=== PATIENT | male | born 1955 | race Caucasian/White ===

== ENCOUNTER → 2020-03-27 14:00 | Outpatient (CLI) | payer MEDICARE | END | disposition home or self-care (01) | LOC: D.CT 14:00 | PROVIDERS: ATTEND Thoracic Surgery (Cardiothoracic Vascular Surgery) | DX: I65.23 Occlusion and stenosis of bilateral carotid arteries (principal) ==

== ENCOUNTER → 2020-03-28 11:08 | Outpatient (CLI) | payer MEDICARE | END | disposition home or self-care (01) | LOC: D.OPS 11:08 | PROVIDERS: ATTEND Thoracic Surgery (Cardiothoracic Vascular Surgery) | DX: I65.23 Occlusion and stenosis of bilateral carotid arteries (principal) ==

== ENCOUNTER → 2020-04-16 10:13 | Outpatient (CLI) | payer MEDICARE ==
--- NOTE | 2020-04-17 13:08 | EC ---
PATIENT:EDITA FREED DATE OF SERVICE: 04/16/20 SEX: M MEDICAL RECORD: [id number] DATE OF : 55 [facility] AGE OF PATIENT: 64 ADMISSION DATE: 04/16/20 REFERRING PHYSICIAN: INTERPRETING PHYSICIAN: SARAH BEE MD ECHOCARDIOGRAM REPORT ECHO CHARGES 4 ECHO COMPLETE Date: 04/16/20 CLINICAL DIAGNOSIS: HEART MURMUR ECHOCARDIOGRAPHIC MEASUREMENTS (adult normal given) AC root (d.<3.7cm) 3.5 cm LV Septum d (<1.2 cm> cm Valve Excursion 1.6 cm LV Septum (systole) cm Left Atria (s.<4.0cm> 4.6 cm LVPW d(<1.2cm) cm RV (d.<2.3cm) 3.8 cm LVPW (sytole) cm LV diastole(<5.6CM) 5.5 cm MV E-F(>70mm/sec) cm LV systole 4.3 cm LVOT Diameter 1.7 cm MV exc.(>10mm) cm Est.ejection fraction (50-75%) % DOPPLER: LVIT cm/sec A 96.0 cm/sec E 62.0 cm/sec LA cm/sec RVSP 19 mmHg LVOT 112 cm/sec AOP1/2T m/s Asc. Ao 134 cm/sec RVOT 86 cm/sec RA cm/sec PA 127 cm/sec AV Gradient Peak 7.21 mmHg AV Mean 3.72 mmHg AV Area 1.9 cm MV Gradient Peak 4.19 mmHg MV Mean 1.33 mmHg MV Area cm COMMENTS: Lead Manufacturing Technician: 2 KRYSTINA DICKEY Senior Production Supervisor: 3 Dr. Jensen TAPE# PACS Pericardial Effusion N DATE OF SERVICE: Adequate 2D, color flow imaging, spectral Doppler, and M-Mode No LVH. LV internal dimensions are normal. Wall motion is normal. EF is greater than or equal to 55%. Aortic valve is sclerotic. There is no evidence of stenosis by Doppler interrogation. Left atrium dilated at 4.6 cm. Mitral valve shows no prolapse. Trace MR. Right-sided chambers are grossly normal. Trace TR. ECHOCARDIOGRAM REPORT [id number] EDITA FREED TRANSINT:[id number] Voice Confirmation ID: [id number] DOCUMENT ID: [id number] SARAH BEE MD at 1308 CC: [id number] DICTATION DATE: 04/17/20822 CERAMIC ARTIST: 04/17/20 09 DEP CLI 04/16/20 [place] [id number] [place] [address]
== END | disposition home or self-care (01) ==
LOC: D.HCCARDIO 10:13 → D.HCCECHO 11:30
PROVIDERS: ATTEND Internal Medicine Cardiovascular Disease
DX: R01.1 Cardiac murmur, unspecified (principal); I20.9 Angina pectoris, unspecified

== ENCOUNTER 2020-05-03 11:59 | Outpatient (CLI) | payer MEDICARE ==
[~2020-05-03] VITALS: Ht 182.9 cm; Wt 141.0 kg
--- NOTE | ~2020-05-03 | HP ---
PATIENT: EDITA FREED MEDICAL RECORD: [id number] ACCOUNT: [id number] LOCATION:[facility]AY : 55 ADMISSION DATE: 05/03/20 PCP: CARLOS PIEDRA MD HISTORY AND PHYSICAL EXAMINATION HISTORY OF PRESENT ILLNESS: A 64-year-old gentleman seen with progressive angina as well as supraventricular tachycardia. He underwent Cardiolite stress testing, which showed reversible ischemia along the inferior wall. He is being brought to the laboratory chief for diagnostic angiography. PAST MEDICAL HISTORY: 1. Hypertension. 2. Hyperlipidemia. 3. Diabetes mellitus. 4. 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 PHYSICAL EXAMINATION: GENERAL: Pleasant gentleman in no acute distress. HEENT: Normocephalic, atraumatic. NECK: No JVD or bruit. HEART: Regular. LUNGS: Clear. ABDOMEN: Soft, nontender. EXTREMITIES: Pulse 2+. No edema. IMPRESSION: Progressive angina with continued progressive angina with positive noninvasive findings. PLAN: For angiography, intervention based on the above. TRANSINT:[id number] Voice Confirmation ID: [id number] DOCUMENT ID: [id number] SARAH BEE MD CC: [id number] DICTATION DATE: 05/03/20 1311 ELECTRIC STOVE MECHANIC: 05/03/20 1457 REG [facility] [address] [place] [address]
--- NOTE | ~2020-05-03 | HEMODYNAMI ---
PATIENT:EDITA FREED MEDICAL RECORD: [id number] : 55 LOCATION:D.CAT ADMISSION DATE: 05/03/20 Generatedon:05/03/202014:59 Patient name: EDITA FREED Patient #: [id number] SSN: [id number] : 1955 Date of study: 05/03/2020 Page: Of Hemodynamic Procedure Report Patient Data Patient Demographics Procedure consent was obtained First Name: EDITA Gender: Male Last Name: ABDIAZIZ : 1955 Patient #: [id number] Age: 64 year(s) Race: Unknown SSN: [id number] Additional ID: [id number] Contact details [address]: [address] [place] [address] [address] State: [place] City: [place] Zip code: [address] Past Medical History Allergies Allergen Reaction Date Comments Reported Other allergy 05/03/2020 ASPIRIN Admission Admission Data Admission Date: 05/03/2020 Admission Time: 11:59 Arrival Date: 05/03/2020 Arrival Time: 0:00 Height (in.): 72.05 BSA: 2.57 (m2) Height (cm.): 183 BMI: 42.1 (kg/m2) Weight (lbs.): 310.85 Weight (kg.): 141 Lab Results Lab Result Date: 05/03/2020 Lab Result Time: 0:00 Biochemistry Name Units Result Min Max BUN mg/dl 17 --(---*)-- 7 18 Creatinine mg/dl 1.3 --(---*)-- 0.6 1.3 eGFR ml/min 59 *-(----)-- 90 120 NONAFRICAN CBC Name Units Result Min Max Hematocrit % 42.8 --(*---)-- 42 54 Hemoglobin g/dl 13.4 -*(----)-- 13.5 17.5 Procedure Procedure Types Cath Procedure Diagnostic Procedure LHC Coronaries only Sedation Charges Moderate Sedation up to 15 minutes Procedure Description Procedure Date Procedure Date: 05/03/2020 Procedure Start Time: 14:39 Procedure End Time: 14:56 Procedure Staff Name Function Toan Black MD Performing Physician Ronit Terry RT Monitor Roula Mcelroy RN Nurse Aurea Terrell RT Scrub Lizz Martines RT Director Telecommunications Indication Angina Procedure Data Cath Procedure Fluoroscopy Diagnostic fluoroscopy Total fluoroscopy Time: 4.1 time: 4.1 min min Diagnostic fluoroscopy Total fluoroscopy dose: dose: 1250 mGy 1250 mGy Contrast Material Contrast Material Type Amount (ml) Isovue 300 48 Entry Location Entry Primary Successful Side Size Upsize Upsize Entry Closure Day ccessful Closure Location (Fr) 1 (Fr) 2 (Fr) Remarks Device Remarks Radial Right 6 Fr Mechanical artery Short Compression Estimated blood loss: 5 ml Diagnostic catheters Device Type Used For End Catheter Placement DIAGNOSTIC [place] 110cm 5 Procedure Fr catheter ([id number]) DIAGNOSTIC AR2 MOD 5 Fr Procedure catheter ([id number]) DIAGNOSTIC Pigtail 5Fr LV Angiography catheter ([id number]) Procedure Complications No complications Procedure Medications Medication Administration Route Dosage 0.9% NaCl I.V. ml/hr Oxygen etCO2 Nasal cannula 2 l/min Lidocaine 2% added to field 20 Heparin Flush Bag added to field 2 bags (1000units/500ml NS) Radial Cocktail added to field 1 syringe (Verapamil 2mg/Nitro 400mcg/Heparin 1500units) Versed I.V. 2 mg Fentanyl I.V. 50 mcg Hemodynamics Rest BSA: 2.57 (m2) HGB: 13.4 (g/dl) O2 Consumption: Estimated: 349.52 (ml/min) O2 Co nsumption indexed: Estimated:136 (ml/min/m) Heart Rate: 0 (bpm) Snapshots Pre Cath Intra NCS Post Cath Vital Signs Time Heart Resp SPO2 etCO2 NIBP (mmHg) Rhythm Pain Sedation Rate (ipm) (%) (mmHg) Status Level (bpm) 14:25:03 61 15 100 36 Measuring NSR 0 (11) 10(A) , No pain 14:26:11 60 16 100 38.9 141/72(123) NSR 0 (11) 10(A) , No pain 14:30:48 67 15 98 34.4 141/76(112) NSR 0 (11) 10(A) , No pain 14:35:22 64 15 96 34.4 142/80(116) NSR 0 (11) 10(A) , No pain 14:39:56 67 13 96 29.9 117/65(89) NSR 0 (11) 9(A) , No pain 14:44:25 66 13 98 34.4 124/68(103) NSR 0 (11) 9(A) , No pain 14:48:55 68 12 97 35.9 136/70(94) NSR 0 (11) 10(A) , No pain 14:53:30 63 9 98 34.4 130/75(106) NSR 0 (11) 10(A) , No pain Medications Time Medication Route Dose Verified Delivered Reason Notes E ffectiveness by by 14:25:58 0.9% NaCl I.V. ml/hr Toan Roula used for Wayne Navi procedure MD TAYLOR 14:26:04 Oxygen etCO2 2 l/min Toan Badilloa used for Nasal Wayne Navi procedure cannula MD TAYLOR 14:26:09 Lidocaine 2% added 20ml Toan Joya [facility] MD HUGO 14:26:13 Heparin Flush added 2 bags Toan Joya used for Bag to [facility] procedure (1000units/500ml field MD HUGO NS) 14:26:25 Radial Cocktail added 1 Toan Joya used for (Verapamil to syringe Wayne Wayne procedure 2mg/Nitro field MD HUGO 400mcg/Heparin 1500units) 14:34:45 Versed I.V. 2 mg Toan Roula for WaynePuma Mcelroy sedation MD TAYLOR 14:34:56 Fentanyl I.V. 50 mcg Toan Celeste for Wayne Navi sedation medical secretary Log Time Note 14:05:44 Lizz Martines RT(R) sent for patient. Start room use. 14:07:35 Informed consent obtained and on chart 14:11:33 Indication : Angina 14:11:48 Procedure Status Elective Heart Cath (OP). 14:11:53 Time tracking: Regular hours (M-F 7:00 - 5:00) 14:12:01 Plan of Care:Hemodynamics will remain stable., Cardiac rhythm will remain stable., Comfort level will be maintained., Respiratory function will remain adequate., Patient/ family verbilizes understanding of procedure., Procedure tolerated without complication., Recovers from procedure without complications.. 14:12:28 Patient received from Pre/Post Procedure Room to CCL 1 Alert and oriented. Tansferred to table in Supine position. 14:12:30 Warm blankets applied, and kristie hugger turned on for patient comfort. 14:12:31 Correct patient and procedure confirmed by team. 14:12:32 ECG and BP/O2 sat monitors applied to patient. 14:14:13 Lab Result : Hematocrit 42.8 % 14:14:13 Lab Result : eGFR NONAFRICAN 59 ml/min 14:14:13 Lab Result : Hemoglobin 13.4 g/dl 14:14:13 Lab Result : BUN 17 mg/dl 14:14: Lab Result : Creatinine 1.3 mg/dl 14::18 Arrival Date: 05/03/2020 12:00:00 AM 14:14:23 Patient Height : 72.05 inches 14:14:28 Patient Weight : 310.85 lbs 14:17:29 Stress Test: yes; abnormal inferior and apical 14:17:35 Risk of Mortality: 0.1 14:17:39 Risk of blood transfusion: 0.1 14:17:43 Risk of CARROL: 0.3 14:22:27 H&P Date Dictated: 05/03/2020 H&P Addendum completed by physician on day of procedure. (MUST COMPLETE FOR ALL OUTPATIENTS), New H&P dictated by physician.. 14:22:28 Pre-procedure instructions explained to patient. 14:22:29 Pre-op teaching completed and patient verbalized understanding. 14:22:45 Family in patients room. 14:22:49 Patient NPO since Midnight. 14:23:13 Patient allergic to Other allergyASPIRIN 14:23:15 Vital chart was started 14:23:16 Baseline sample Acquired. 14:23:44 Is the patient allergic to Iodine/contrast media? No. 14:23:48 Was the patient premedicated? Yes 14:23:50 Is patient on blood thinner?Yes 14:23:58 ACC The patient was administered the following blood thiners within the last 24 hours: ACCPlavix 14:24:01 Patient diabetic? Yes. 14:24:09 If diabetic: On Metformin? No 14:24:49 ----Pre-sedation anethsthesia assessment.---- 14:24:54 Previous problem with sedation/anesthesia? No ? 14::58 Snore? Yes 14:25:06 Sleep apnea? No 14:25:20 Deviated septum? Unknown 14:25:23 Opens mouth fully? Yes 14:25:25 Sticks out tongue? Yes 14:25:30 Baseline sample Acquired. 14::58 Baseline sample Acquired. 14::58 0.9% NaCl ml/hr I.V. was administered by Roula Mcelroy RN; used for procedure; Verbal order read back and verified. 14:26:04 Oxygen 2 l/min etCO2 Nasal cannula was administered by Roula Mcelroy RN ; used for procedure; Verbal order read back and verified. 14:26:09 Lidocaine 2% 20ml vial added to field was administered by Toan Black MD; for local anesthetic; Verbal order read back and verified. 14:26:13 Heparin Flush Bag (1000units/500ml NS) 2 bags added to field was administered by Toan Black MD; used for procedure; Verbal order read back and verified. 14:26:25 Radial Cocktail (Verapamil 2mg/Nitro 400mcg/Heparin 1500units) 1 syring e added to field was administered by Toan Black MD; used for procedure; Verbal order read back and verified. 14:26:28 Full Disclosure recording started 14:26:46 Airway obstruction? No ? 14::54 Dentures? No ? 14::55 - 14:27:05 Pre procedure: left dorsailis pedis pulse 1+ Palpable, but thready & weak; easily obliterated 14:27:22 Modified Dae's test Ulnar > 7 seconds. 14:27:33 IV patent on arrival in left forearm with 0.9% NaCl at [facility]. 14:27:41 Lab results completed and on chart. 14:27:52 Right Radial & Left Groin area was prepped with chlora-prep and draped in sterile fashion 14:27:55 Alarms reviewed by RAnthony NAnthony 14:27:57 Sharps counted by scrub and verified by RAnthonyNAnthony 14:29:21 Baseline sample Acquired. 14:29:31 Rhythm: sinus rhythm 14::37 Physician arrived 14::38 --------ALL STOP TIME OUT------ 14::39 Final Timeout: patient, procedure, and site verified with staff and physician. All members of the team are in agreement. 14:29:44 Right Radial & Left Groin site verified by team. 14:29:56 Fire Safety Assessment: A--An alcohol-based skin anteseptic being used preoperatively., C--Open oxygen or nitrous oxide is being used., D--An ESU, laser, or fiber-optic light is being used. 14:30:05 Physical assessment completed. ASA score P 2 - A patient with mild systemic disease as per Toan Black MD. 14:30:16 3a) 45-59 Moderately reduced kidney function. 14:30:22 Maximum allowable contrast dose (3.7 X eGFR X 0.75)163 ml. 14:30:36 Sedation plan: IV Moderate Sedation Medication:Versed, Fentanyl 14:30:44 Use device set Radial Dx or PCI 14:30:46 ACIST Syringe (14433) opened to sterile field. 14:30:48 Medline Cath Pack ([id number]) opened to sterile field. 14:30:48 Bag Decanter (2002S) opened to sterile field. 14:30:50 ACIST Hand Control (36276) opened to sterile field. 14:30:52 ACIST Manifold (17232) opened to sterile field. 14:30:54 MBrace Wrist Support ([id number]) opened to sterile field. 14:30:57 EMERALD Guide Wire (190-410) opened to sterile field. 14:30:59 SHEATH 6FR RAIN (0554112) opened to sterile field. 14:34:03 Zero performed for pressure channel P1 14:34:45 Versed 2 mg I.V. was administered by Roula Mcelroy RN; for sedation; Verbal order read back and verified. 14:34:56 Fentanyl 50 mcg I.V. was administered by Roula Mcelroy RN; for sedation ; Verbal order read back and verified. 14:39:07 Procedure started. 14:39:15 Local anesthetic to right radial artery with Lidocaine 2% by Toan Black MD.INITIAL ACCESS ONLY 14:39:32 A 6 Fr Short sheath was inserted into the Right Radial artery 14:39:45 A DIAGNOSTIC [place] 110cm 5 Fr catheter (861195) was advanced over the wire and used for Procedure. 14:43:27 LCA angiography performed. 14:43:42 Injector settings: Ml/sec: 3, Volume: 6, 14:46:34 Catheter removed. 14:47:09 A DIAGNOSTIC AR2 MOD 5 Fr catheter (217232Z) was advanced over the wire and used for Procedure. 14:47:48 RCA angiography performed. 14:47:54 Injector settings: Ml/sec: 3, Volume: 6, 14:48:10 Catheter removed. 14:48:39 A DIAGNOSTIC Pigtail 5Fr catheter (032975V) was advanced over the wire and used for LV Angiography. 14:50:44 Catheter removed. 14:51:37 ZEPHYR LARGE TR BAND (675122) opened to sterile field. 14:51:44 Sheath removed intact; hemostasis achieved with Mechanical Compression to the Right Radial artery. 14:51:54 Procedure ended.(Physican Out) 14:52:15 Contrast amount:Isovue 300 48ml. 14:52:25 Fluoroscopy time 04.10 minutes. 14:52:30 Flurop Dose total: 1250 14:52:30 Fluoroscopy dose: 1250 mGy 14:52:42 Dose Area Product 58566 mGy/cm. 14:52:48 Maximum allowable dose exceeded? No. 14:52:51 Sharps counted by scrub and verified by R.N. 14:53:38 [place] band inflated with 10cc of air. 14:53:49 Post right radial artery:stable 14:53:57 Post-procedure physical assessment completed. ASA score P 2 - A patient with mild systemic disease as per Toan Black MD. 14:54:01 Post procedure rhythm: unchanged. 14:54:18 Estimated blood loss: 5 ml 14:54:19 Post procedure instruction explained to patient.Patient verbalizes understanding. 14:54:21 Patient needs reinforcement of post procedure teaching. 14:54:59 Procedure type changed to Cath procedure, Diagnostic procedure, LHC, Coronaries only, Sedation Charges, Moderate Sedation up to 15 minutes 14:55:02 Procedure and supply charges have been captured, reviewed, submitted an d are correct. 14:55:33 Procedure Complication : No complications 14:55:37 Vital chart was stopped 14:56:07 [facility] Findings: mild to moderate CAD (<70%) 14:56:08 Operative report dictated upon procedure completion. 14:56:10 See physician's report for complete and final results. 14:56:20 Report given to Pre/Post Procedure Room. 14:56:26 Patient transfered to Pre/Post Procedure Room with Stretcher. 14:56:29 Procedure ended. 14:56:29 Full Disclosure recording stopped 14:56:35 End room use (Document Last) Device Usage Item Name Manufacture Quantity Catalog Hospital Part Current Minima l Lot# / Number Charge Number Stock Stock Serial# Code ACIST Acist 1 48861 796645 282370 944000 20 Syringe Medical (30178) Systems Inc Medline Medline 1 [id number] 870819 99551 184344 5 Cath Pack ([id number]) Bag Microtek 1 534638 97008 920693 5 Decanter Medical Inc. () ACIST Hand Acist 1 46170 940385 069492 849164 5 Control Medical (29269) Systems Inc ACIST Acist 1 78504 653873 507147 860339 5 Manifold Medical (12755) Systems Inc MBrace Advanced 1 140-0250-00 868197 86464 261389 5 Wrist Vascular Support Dynamics ([id number]) EMERALD Cardinal 1 502-455 089861 035020 018310 5 Guide Wire Health (502455) SHEATH 6FR Cardinal 1 8297167 826998 1266143 863583 5 [facility] (7025045) DIAGNOSTIC Terumo 1 40-5013 917598 614840 459474 5 [place] 110cm 5 Fr catheter (095946) DIAGNOSTIC Cardinal 1 [id number] 188924 167668 202200 20 AR2 MOD 5 Health Fr catheter (177410Z) DIAGNOSTIC Cardinal 1 [id number] 500460 310827 449794 5 Pigtail 5Fr Health catheter (165604P) ZEPHYR Cardinal 1 410381 519531 1713282 573172 5 LARGE TR Health BAND (885893) Signature Audit [place] Stage Time Signature Unsigned Intra-Procedure 05/03/2020 Ronit 2:57:04 PM Harrison RT(R) (CV) Intra-Procedure 05/03/2020 Roula Mcelroy 2:58:23 PM RN Intra-Procedure 05/03/2020 Toan Santana 2:59:02 PM Puma HUGO [facility] [address] [facility] [place] [address]
--- NOTE | ~2020-05-03 | OP ---
PATIENT NAME: EDITA FREED MEDICAL RECORD: [id number] :55 LOCATION:D.CAT ADMISSION DATE: SURGEON: SARAH BEE MD DATE OF OPERATION: 05/03/2020 PROCEDURE: Left heart catheterization, selective coronary angiography, right radial approach. CATHETERS: [place] sheath, radial catheter. The procedure was well tolerated. The patient was returned to the [place]. Sheath was removed. TR band was placed. FINDINGS: Left ventriculography not perform. Normal wall motion, normal systolic function via echocardiogram study and nuclear stress testing. CORONARY ANATOMY: LEFT MAIN: Left main is free of disease. LAD: Has mild luminal irregularities, otherwise free of disease. CIRCUMFLEX: There is a huge left dominant system. Circumflex is free of disease. RIGHT CORONARY ARTERY: Rudimentary. IMPRESSION: Normal LV systolic function via noninvasive studies, luminal irregularities to LAD, widely patent dominant circ, right is rudimentary. TRANSINT:[id number] Voice Confirmation ID: [id number] DOCUMENT ID: [id number] SARAH BEE MD CC: [id number] DICTATION DATE: 05/03/20 1457 KEY RINGER: 05/03/20 1625 REG [facility] [address] [place] [address]
[2020-05-03] MEDS ORDERED: INSULIN LISPRO SQ (12:41)
[2020-05-03] MEDS ORDERED: LEVEMIR FL100 UNIT/1 SC (12:42)
[2020-05-03] MEDS ORDERED: ZESTRIL20 MG PO (12:43)
[2020-05-03] MEDS ORDERED: PLAVIX75 MG PO (12:44)
[2020-05-03] MEDS ORDERED: OMEPRAZOLE40 MG PO (12:44)
[2020-05-03] MEDS ORDERED: BYSTOLIC10 MG PO (12:45)
[2020-05-03] MEDS ORDERED: LIPITOR40 MG PO (12:45)
[2020-05-03] MEDS ORDERED: JARDIANCE25 MG PO (12:45)
[2020-05-03 13:16] VITALS: BP 124/68; Ht 182.9 cm; Wt 141.0 kg
[2020-05-03 13:22] LABS: BASOPHILS 0.6 % (0-2); EOSINOPHILS 3.2 % (0-7); HEMATOCRIT 42.8 % (42.0-54.0); HEMOGLOBIN 13.4 g/dL (13.5-17.5); IMMATURE GRANULOCYTES 0.2 % (0-5); LYMPHOCYTES 16.7 % (15-50); MCHC 31.3 g/dL (31.0-37.0); MCV 86.1 fL (80.0-100.0); MONOCYTES 11.4 % (2-11); NEUTROPHILS 67.9 % (40-80); PLATELET COUNT 216 10x3/uL (130-400); RBC 4.97 10x6/uL (4.20-6.10); RDW 16.1 % (11.5-14.5); WBC 8.4 10x3/uL (4.8-10.8)
[2020-05-03 13:37] LABS: ANION GAP 11.4 mmol/L (8-16); CALCIUM 8.4 mg/dL (8.5-10.1); CARBON DIOXIDE 24.9 mmol/L (21.0-32.0); CHOL - HDL RATIO 3.3 ratio (2.3-4.9); CREATININE - SERUM 1.3 mg/dL (0.6-1.3); LDL-HDL RATIO 1.8 ratio (1.5-3.5); POTASSIUM - SERUM 4.3 mmol/L (3.5-5.1)
--- NOTE | 2020-05-03 15:00 | NUR ---
PT ARRIVED BY STRETCHER. PLACED ON MONITORS. ASSESSMENT COMPLETED. VSS AT THIS TIME. AT BEDSIDE.
--- NOTE | 2020-05-03 15:15 | NUR ---
PT SITTING UP IN BED. CALL LIGHT WITHIN REACH. DENIES NAUSEA/PAIN. SET UP WITH SANDWICH TRAY AND DRINK. FAMILY AT BEDSIDE TO ASSIST.
--- NOTE | 2020-05-03 15:45 | NUR ---
2cc OF AIR REMOVED FROM Z BAND. NO BLEEDING/HEMATOMA NOTED AT THIS TIME. CALL LIGHT WITHIN REACH. VSS AT THIS TIME. FAMILY AT BEDSIDE.
--- NOTE | 2020-05-03 16:00 | NUR ---
4cc OF AIR REMOVED FROM Z BAND. NO BLEEDING/HEMATOMA NOTED.
--- NOTE | 2020-05-03 16:15 | NUR ---
4cc OF AIR REMOVED FROM Z BAND. NO BLEEDING/HEMATOMA NOTED. CALL LIGHT WITHIN REACH. VSS AT THIS TIME.
--- NOTE | 2020-05-03 16:20 | NUR ---
PIV D/C'C WITH CATH TIP INTACT. TOLERATED WELL. VSS. RIGHT WRIST Z BAND IN PLACE. NO BLEEDING/HEMATOMA NOTED.
--- NOTE | 2020-05-03 16:30 | NUR ---
PT TO RESTROOM. VOIDED WITHOUT DIFFICULTY. STEADY GAIT NOTED. RIGHT WRIST Z BAND REMOVED AND DRESSING APPLIED. NO BLEEDING/HEMATOMA NOTED. RIGHT WRIST BRACE IN PLACE.
--- NOTE | 2020-05-03 16:44 | NUR ---
RIGHT WRIST DRESSING C/D/I. NO S/S OF HEMATOMA NOTED.
--- NOTE | 2020-05-03 16:45 | NUR ---
PT TAKEN DOWN TO VEHICLE BY WHEELCHAIR. NO S/S OF DISTRESS NOTED. ALL BELONGINGS AND PAPERWORK IN HAND.
== END 2020-05-03 16:45 | disposition home or self-care (01) ==
LOC: D.CATH 11:59
PROVIDERS: ATTEND Internal Medicine Interventional Cardiology
DX: I20.0 Unstable angina (principal); I47.1 Supraventricular tachycardia; I10 Essential (primary) hypertension; E78.5 Hyperlipidemia, unspecified; E11.9 Type 2 diabetes mellitus without complications; Z79.4 Long term (current) use of insulin

== ENCOUNTER 2020-07-09 13:00 | Inpatient (IN) | payer MEDICARE ==
[~2020-07-09] VITALS: Ht 185.4 cm; Wt 137.9 kg
[~2020-07-09 13:00] MED LIST: BYSTOLIC10 MG PO; INSULIN LISPRO SQ; JARDIANCE25 MG PO; LEVEMIR FL100 UNIT/1 SC; LIPITOR40 MG PO; OMEPRAZOLE40 MG PO; PLAVIX75 MG PO; ZESTRIL20 MG PO
[2020-07-09] MEDS ORDERED: PLAVIX75 MG PO (13:44)
[2020-07-09 15:18] LABS: APTT 29.2 SECONDS (22.8-39.4); INR 1.09 (0.85-1.17)
[2020-07-09 15:23] LABS: ALBUMIN 3.2 g/dL (3.4-5.0); ANION GAP 11.8 mmol/L (8-16); BILIRUBIN - TOTAL 0.5 mg/dL (0.2-1.3); CALCIUM 8.4 mg/dL (8.5-10.1); CARBON DIOXIDE 24.9 mmol/L (21.0-32.0); CREATININE - SERUM 1.3 mg/dL (0.6-1.3); POTASSIUM - SERUM 3.7 mmol/L (3.5-5.1)
[2020-07-09 15:42] LABS: HEMATOCRIT 45.1 % (42.0-54.0); HEMOGLOBIN 14.3 g/dL (13.5-17.5); MCH 27.7 pg (26.0-34.0); MCHC 31.7 g/dL (31.0-37.0); MCV 87.4 fL (80.0-100.0); MEAN PLATELET VOLUME 10.5 fL (7.4-10.4); RBC 5.16 10x6/uL (4.20-6.10); RDW 16.1 % (11.5-14.5); WBC 8.1 10x3/uL (4.8-10.8)
[2020-07-09 15:49] LABS: NITRITE NEGATIVE (NEGATIVE)
[2020-07-09 15:50] LABS: BILIRUBIN NEGATIVE (NEGATIVE); KETONE NEGATIVE (NEGATIVE); UROBILINOGEN NORMAL (NORMAL)
[2020-07-10] VITALS (65 sets, daily range): BP systolic 87–147; BP diastolic 42–97; BMI 39.6; BMI 40.2
--- NOTE | 2020-07-10 11:00 | NUR ---
Arrived to room around 1035 via bed. Currently on 9L 02 via high flow nc. Right side of neck dressing c/d/i. Marcello drain to right upper chest. Left subclavian cvl. See IV flowsheet for drips. Colostomy to right lower quadrant. dunlap catheter in place with clear yellow urine. DEZ'S and SCD's on. Right radial abrahan in place. Safety measures in place. Will continue to monitor.
--- NOTE | 2020-07-10 12:31 | NUR ---
BP 134/59. Cleviprex turned on per Dr. Darnell's orders. Will continue to monitor.
--- NOTE | 2020-07-10 14:48 | NUR ---
BP 130/57, on 33.33mcg/min of nitroglycerin and 9mg/hr cleviprex. Dr. Darnell notified. ordered lopressor 2.5MG IV x 1.
--- NOTE | 2020-07-10 17:04 | NUR ---
Meal tray delivered and set up. Pt has been tolerating clear liquids. No nausea reported. Daughter at bedside. Will continue to monitor.
[2020-07-11] VITALS (39 sets, daily range): BP systolic 102–160; BP diastolic 39–86; Ht 185.4 cm; Wt 137.9 kg
--- NOTE | 2020-07-11 00:20 | NUR ---
A-LINE PRESSURE 152/54, PRN HYDRALAZINE GIVEN PER MAR. WILL CONTINUE TO OBSERVE.
[2020-07-11 05:57] LABS: BASOPHILS 0.2 % (0-2); EOSINOPHILS 1.3 % (0-7); HEMATOCRIT 40.1 % (42.0-54.0); HEMOGLOBIN 12.5 g/dL (13.5-17.5); IMMATURE GRANULOCYTES 0.2 % (0-5); LYMPHOCYTES 7.6 % (15-50); MCH 26.8 pg (26.0-34.0); MCHC 31.2 g/dL (31.0-37.0); MCV 86.1 fL (80.0-100.0); MEAN PLATELET VOLUME 10.1 fL (7.4-10.4); MONOCYTES 12.8 % (2-11); NEUTROPHILS 77.9 % (40-80); PLATELET COUNT 188 10x3/uL (130-400); RBC 4.66 10x6/uL (4.20-6.10); RDW 16.4 % (11.5-14.5)
[2020-07-11 06:09] LABS: WBC 11.5 10x3/uL (4.8-10.8)
[2020-07-11 06:30] LABS: ANION GAP 8.8 mmol/L (8-16); CALCIUM 7.7 mg/dL (8.5-10.1); CARBON DIOXIDE 26.2 mmol/L (21.0-32.0); CREATININE - SERUM 1.1 mg/dL (0.6-1.3); MAGNESIUM - SERUM 2.4 mg/dL (1.8-2.4)
--- NOTE | 2020-07-11 10:50 | NUR ---
CVP DC'D AND ARTLINE PULLED WITH PRESSURE HELD FOR 5 MINUTES THEN APPLIED TAPE TO DRESSING ARTLINE CATH INTACT WITH NO DRAINAGE NOTED ON END OF CATH. SITES HEALTHY. NORTH DC'D TIP OF CATH INTACT WITH BLOODY DRAINAGE NOTED ON END OF CATH.
--- NOTE | 2020-07-11 11:05 | NUR ---
PATIENT BACK TO BED AND OTONIEL DRAIN PULLED PER MD ORDERS PER PROTOCOL. PATIENT TOLERATED WELL. CALL LIGHT WITHIN REACH, BED IN LOW POSITION, AND WILL CONTINUE TO MONITOR.
[2020-07-11] MEDS ORDERED: LOPRESSOR25 MG PO (15:44)
[2020-07-11] MEDS ORDERED: ULTRAM50 MG PO (15:46)
--- NOTE | 2020-07-11 16:00 | OP ---
PATIENT NAME: EDITA FREED MEDICAL RECORD: [id number] :55 LOCATION:[facility] D.[id number] ADMISSION DATE:07/10/20 SURGEON: EVAN BOYD MD DATE OF OPERATION: 07/10/2020 SURGEON: Evan Body MD PROCEDURE PERFORMED: Right carotid endarterectomy. PREOPERATIVE DIAGNOSIS: Right carotid stenosis. POSTOPERATIVE DIAGNOSIS: Right carotid stenosis. ANESTHESIA: General endotracheal anesthesia. ESTIMATED BLOOD LOSS: 20 cc. COMPLICATIONS: None. SPECIMENS: Plaque. CONDITION: Stable. DISPOSITION: CV ICU. OPERATIVE FINDINGS: 1. Irregular and severely calcified plaque in the proximal internal carotid artery, the plaque feathered well distally and a CorMatrix patch was used to close the arteriotomy. 2. Neurologically intact to CV ICU. OPERATIVE INDICATION: The patient with severe carotid stenosis, obesity, diabetes, hypertension, hyperlipidemia. On Plavix. PROCEDURE IN DETAIL: The patient was brought to the operating suite. General anesthesia was obtained, the patient was prepped and draped. An oblique incision was made in the right neck, taken down through subcutaneous tissue and muscle to visualize the common carotid, which was encircled. Two large facial venous branches were divided between ligatures and suture ligatures and multiple smaller branches were divided between ligatures or small Hemoclips. The external carotid and thyroid branch were encircled with vessel loops. The internal carotid was dissected out distally. The hypoglossal nerve was kept out of harm's way, and the ANSA was divided between clips. Relatively normal region of the internal carotid was identified. Heparin was given. After the heparin had circulated, backbleeding of the internal carotid was controlled with a bulldog clamp, inflow with a vascular clamp, and backbleeding of the external carotid and thyroid branch were controlled with vessel loops. EEG and cerebral oximetry remained intact for 2 minutes. Therefore, the arteriotomy was begun in the common carotid artery taken out through the region of dense calcification into a relatively normal region of internal carotid. Backbleeding from the internal carotid was checked and it was brisk. The plaque was divided in the common carotid artery with an eversion endarterectomy of the external carotid and the plaque feathered well distally. Thorough irrigation was undertaken. All bits of loose debris were removed. A patch was fashioned to the appropriate size and sutured along the edges of the arteriotomy. Prior to completing the OPERATIVE REPORT [id number] EDITA FREED anastomosis, backbleeding was allowed from all 3 major vessels. Thorough irrigation of the endarterectomy bed was again completed and the anastomosis completed, flow restored first to the external carotid and then to the internal carotid. Hemostasis was assured with interrupted patch sutures. Protamine was given. Thorough antibiotic irrigation was performed, hemostasis was assured. A drain was placed through a separate stab wound. Neck was closed in 3 layers. Dermabond of the skin. Anesthesia was reversed. The patient neurologically intact to CV ICU. TRANSINT:[id number] Voice Confirmation ID: [id number] DOCUMENT ID: [id number] EVAN BOYD MD at 1600 CC: CARLOS PIEDRA [id number] DICTATION DATE: 07/10/20 1124 SHAPE BRICK MOLDER: 07/10/20 2153 ADM IN [address] [id number] [place] [address]
--- NOTE | 2020-07-11 17:15 | NUR ---
PATIENT BACK TO BED AND LAID SUPINE. CVL DC'D CATH INTACT AND NO DRAINAGE NOTED. PRESSURE DRESSING APPLIED AND HELD FOR 5 MINS.
--- NOTE | 2020-07-11 18:00 | NUR ---
PATIENT DISCHARGED TO POV VIA W/C IN GOOD STABLE CONDITION.
== END 2020-07-11 18:00 | disposition home or self-care (01) | DRG 39 ==
LOC: D.CVICU 07-10 05:25 → D.SDCHOLD 07-10 05:25 → D.CVICU 07-10 10:46
PROVIDERS: Family Medicine; Internal Medicine Cardiovascular Disease; ADMIT Thoracic Surgery (Cardiothoracic Vascular Surgery); ATTEND Thoracic Surgery (Cardiothoracic Vascular Surgery)
PROC: 03UK0JZ Supplement Right Internal Carotid Artery with Synthetic Substitute, Open Approach (ICD-10-PCS; 2020-07-10)
PROC: 03CK0ZZ Extirpation of Matter from Right Internal Carotid Artery, Open Approach (ICD-10-PCS; principal; 2020-07-10 07:30)
DX: I65.21 Occlusion and stenosis of right carotid artery (principal); I25.10 Atherosclerotic heart disease of native coronary artery without angina pectoris; E11.9 Type 2 diabetes mellitus without complications; K21.9 Gastro-esophageal reflux disease without esophagitis